=== PATIENT | female | born 1975 | race American Indian/Alaskan Native ===

== ENCOUNTER 2017-01-17 13:19 | Emergency (ER) | payer MEDICAID ==
[2017-01-17] MEDS ORDERED: TORADOL IM ONE (17:22)
--- NOTE | 2017-01-17 17:27 | Emergency Department Report ---
ED Recheck HPI - General Chief Complaint: High BP Stated Complaint: HYPERTENSION Time Seen by Provider: 01/17/17 16:11 Source: patient Mode of arrival: Ambulatory Limitations: No Limitations - History of Present Illness Initial Comments: This is a 41-year-old female nontoxic, well nourished in appearance, no acute signs of distress presents to the ED with c/o of hypertension and chronic intermittent headaches. Patient stated she has history of hypertension and has been receiving medication for blood pressure but stated she stopped due to normal blood pressure readings. Patient stated she went to a pharmacist and take her blood pressure and CVS was elevated and she was concerned and he needed to follow up with provider for hypertension.She is currently on a diet for hypertension. She denies taking any medication. Patient describes headache as aching diffusely. Denies thunderclap headache. Patient states headache is subsided with darkness and aggravated with light. Patient denies any blurry vision, nausea, vomiting, chest pain, shortness of breathe, numbness , tingling, stiff neck, or visual chagnes. Allergies to Naproxen and Tramadol. PMH includes Seizures. MD Complaint: medication refill request -: year(s) Returns Today for: request for prescription Symptoms Since Prior Visit: no new symptoms, improved Associated Symptoms: none. denies: fever, chills, chest pain, shortness of breath, rash, malaise, nasuea, abdominal pain - Related Data Previous Rx's Medication Instructions Recorded Last Taken Type Diclofenac Dr [Hans Rios] 75 mg PO BIDWM #20 tablet 08/01/15 Unknown Rx Diphenhydramine HCl [Benadryl 25 mg PO Q6H #30 tablet 10/06/15 Unknown Rx Allergy TAB] Hydrocortisone 1% [Hydrocortisone 1 applicatio TP TID #1 tube 10/06/15 Unknown Rx 1% CREAM] Butalb/Acetamin/Caff 50-325-40 1 tab PO Q6HR PRN #30 tab 01/17/17 Unknown Rx [Fioricet] Allergies Allergy/AdvReac Type Severity Reaction Status Date / Time naproxen [From Naprosyn] AdvReac Nausea Verified 10/06/15 09:26 tramadol HCl [From Ultram] AdvReac Nausea Verified 10/06/15 09:26 ED Review of Systems ROS: Stated complaint: HYPERTENSION Other details as noted in HPI Constitutional: denies: chills, fever Eyes: denies: eye pain, eye discharge, vision change ENT: denies: ear pain, throat pain Respiratory: denies: cough, shortness of breath, wheezing Cardiovascular: denies: chest pain, palpitations Endocrine: no symptoms reported Gastrointestinal: denies: abdominal pain, nausea, diarrhea Genitourinary: denies: urgency, dysuria, discharge Musculoskeletal: denies: back pain, joint swelling, arthralgia Skin: denies: rash, lesions Neurological: headache. denies: weakness, paresthesias Psychiatric: denies: anxiety, depression Hematological/Lymphatic: denies: easy bleeding, easy bruising ED Past Medical Hx - Past Medical History Previous Medical History?: Yes Hx Seizures: Yes Additional medical history: cerebral palsy - Surgical History Past Surgical History?: Yes Additional Surgical History: hysterectomy 05/24 - Social History Smoking Status: Never Smoker Substance Use Type: None - Medications Home Medications: Home Medications Medication Instructions Recorded Confirmed Last Taken Type Diclofenac Dr [Voltaremario alberto Dr] 75 mg PO BIDWM #20 tablet 08/01/15 Unknown Rx Diphenhydramine HCl [Benadryl 25 mg PO Q6H #30 tablet 10/06/15 Unknown Rx Allergy TAB] Hydrocortisone 1% [Hydrocortisone 1 applicatio TP TID #1 tube 10/06/15 Unknown Rx 1% CREAM] Butalb/Acetamin/Caff 50-325-40 1 tab PO Q6HR PRN #30 tab 01/17/17 Unknown Rx [Fioricet] ED Physical Exam - General Limitations: No Limitations General appearance: alert, in no apparent distress - Head Head exam: Present: atraumatic, normocephalic, normal inspection - Eye Eye exam: Present: normal appearance, PERRL, EOMI. Absent: scleral icterus, conjunctival injection, nystagmus, periorbital swelling, periorbital tenderness Pupils: Present: normal accommodation - ENT ENT exam: Present: normal exam, normal orophraynx, mucous membranes moist, TM's normal bilaterally, normal external ear exam - Neck Neck exam: Present: normal inspection, full ROM. Absent: tenderness, meningismus, lymphadenopathy, thyromegaly - Respiratory Respiratory exam: Present: normal lung sounds bilaterally. Absent: respiratory distress, wheezes, rales, rhonchi, stridor, chest wall tenderness, accessory muscle use, decreased breath sounds, prolonged expiratory - Cardiovascular Cardiovascular Exam: Present: regular rate, normal rhythm, normal heart sounds. Absent: bradycardia, tachycardia, irregular rhythm, systolic murmur, diastolic murmur, rubs, gallop - GI/Abdominal GI/Abdominal exam: Present: soft, normal bowel sounds. Absent: distended, tenderness, guarding, rebound, rigid, diminished bowel sounds - Rectal Rectal exam: Present: deferred - Extremities Exam Extremities exam: Present: normal inspection, full ROM, normal capillary refill. Absent: tenderness, pedal edema, joint swelling, calf tenderness - Back Exam Back exam: Present: normal inspection, full ROM. Absent: tenderness, CVA tenderness (R), CVA tenderness (L), muscle spasm, paraspinal tenderness, vertebral tenderness, rash noted - Neurological Exam Neurological exam: Present: alert, oriented X3, CN II-XII intact, normal gait, reflexes normal - Expanded Neurological Exam Expanded Patient oriented to: Present: person, place, time Cranial nerves: EOM's Intact: Normal, Gag Reflex: Normal, Tongue Deviation: Normal, Nystagmus: Normal, Facial Sensation: Normal, Facial Palsy with Forehead Movement: Normal, Facial Palsy without Forehead Movement: Normal Cerebellar function: Finger to Nose: Normal, Heel to Guerrero: Normal, Romberg: Normal Upper motor neuron: Jordan Neglect: Normal, Pronator Drift: Normal, Babinski Sign : Normal, Sensory Extinction: Normal Sensory exam: Upper Extremity Light Touch: Normal, Upper Extremity Pin Prick: Normal, Upper Extremity Temperature: Normal, UE 2 Point Discrimination: Normal, Lower Extremity Light Touch: Normal, Lower Extremity Pin Prick: Normal, Lower Extremity Temperature: Normal, LE 2 Point Discrimination: Normal Motor strength exam: RUE: 5, LUE: 5, RLE: 5, LLE: 5 DTR: bicep (R): 2+, bicep (L): 2+, tricep (R): 2+, tricep (L): 2+, knee (R): 2+ , knee (L): 2+, ankle (R): 2+, ankle (L): 2+ Best Eye Response (Jovana): (4) open spontaneously Best Motor Response ([place]): (6) obeys commands Best Verbal Response (Jovana): (5) oriented Jovana Total: 15 - Psychiatric Psychiatric exam: Present: normal affect, normal mood - Skin Skin exam: Present: warm, dry, intact, normal color. Absent: rash ED Course Vital Signs 01/17/17 01/17/17 14:16 17:25 Temperature 98.6 F Pulse Rate 90 79 Respiratory 18 Rate Blood Pressure 146/83 147/61 O2 Sat by Pulse 99 97 Oximetry - Reevaluation(s) Reevaluation #1: 01/17/17 17:28 Patient is speaking in full sentences with no signs of distress noted. ED Recheck MDM - Medical Decision Making This is a 41-year-old female that presents with chronic intermittent headaches. Patient is stable and was examiend by me. Patient vital signs is stable including b/p. Patient recevied Toradol in the ED which patient stated headache has improved and subsided. Patient was instructed to Follow-up with a primary care doctor in 3-5 days or if symptoms worsen and continue return to emergency room as soon as possible. At time time of discharge, the patient does not seem toxic or ill in appearance. No acute signs of distress noted. Patient agrees to discharge treatment plan of care. No further questions noted by the patient. Critical care attestation.: If time is entered above; I have spent that time in minutes in the direct care of this critically ill patient, excluding procedure time. ED Disposition Clinical Impression: Medication refill Headache Qualifiers: Headache type: unspecified Headache chronicity pattern: chronic headache Intractability: not intractable Qualified Code(s): R51 - Headache Disposition: DC-01 TO HOME OR SELFCARE Is pt being admited?: No Does the pt Need Aspirin: No Condition: Stable Instructions: Butalbital/Aspirin/Caffeine (By mouth), Acute Headache (ED) Additional Instructions: Follow-up with a primary care doctor in 3-5 days or if symptoms worsen and continue return to emergency room as soon as possible. Prescriptions: Butalb/Acetamin/Caff 50-325-40 [Fioricet] 1 tab PO Q6HR PRN #30 tab PRN Reason: Headache Referrals: PRIMARY CAREMD [Primary Care Provider] - 3-5 Days MARK EVERETT MD [Staff Physician] - 3-5 Days [facility] [Outside] - 3-5 Days [facility] [Outside] - 3-5 Days Forms: Work/School Release Form(ED)
[2017-01-17 17:28] VITALS: BP 147/61
== END 2017-01-17 19:12 | disposition home or self-care (01) ==
LOC: ED 13:19
DX: R51 Headache (principal); R56.9 Unspecified convulsions; Z88.8 Allergy status to other drugs, medicaments and biological substances
CPT/HCPCS: 96372; 99282; J1885

== ENCOUNTER 2020-03-31 11:08 | Emergency (ER) | payer MEDICAID ==
[2020-03-31 11:25] VITALS: BP 160/81
--- NOTE | 2020-03-31 11:43 | Emergency Department Report ---
Blank Doc - Documentation Documentation: 44-year-old female that had a right breast biopsy 03/22 to right breast presents to the ED with complaints of right sided chest pain, SOB, and body aches. 1- This initial assessment/diagnostic orders/clinical plan/ treatment(s) is/are subject to change based on pt's health status, clinical progression and re- assessment by fellow clinical providers in the ED. Further treatment and workup at subsequent clinical provers discretion. Patient/guardians urged not to elope from ED as their condition may be serious if not clinically assessed and managed. 2-labs 3-EKG
[2020-03-31 12:46] LABS: Hematocrit 36.9 % (30.3-42.9); Hemoglobin 12.2 gm/dl (10.1-14.3); Mean Corpuscular HGB Conc 33 % (30-34); Mean Corpuscular Volume 90 fl (79-97); Platelet Count 215 K/mm3 (140-440); Red Blood Count 4.11 M/mm3 (3.65-5.03); Red Cell Distribution Width 12.4 % (13.2-15.2)
[2020-03-31] MEDS ORDERED: ALUM-MAG HYDROXIDE-SIMETHICONE 200-200-20MG/5ML ORAL LIQD 30 ML PO ONE (12:49)
[2020-03-31] MEDS ORDERED: LIDOCAINE VISCOUS 2% 15 ML ORAL LIQD PO ONE (12:49)
[2020-03-31 12:58] LABS: INR 1.05 (0.87-1.13); Partial Thromboplastin Time 29.2 Sec. (24.2-36.6)
[2020-03-31 13:05] LABS: Alanine Aminotransferase 10 units/L (7-56); Albumin 4.3 g/dL (3.9-5); Blood Urea Nitrogen 4 mg/dL (7-17); Hemolysis Index 0
--- NOTE | 2020-03-31 13:17 | Emergency Department Report ---
ED General Adult HPI - General Chief complaint: Pain General Stated complaint: NOT FEELING WELL/JEREMY Time Seen by Provider: 03/31/20 11:41 Source: patient Mode of arrival: Ambulatory Limitations: No Limitations - History of Present Illness Initial comments: Patient is 44-year-old female with no significant past medical history except for recent biopsy and surgery. Patient presented to the ER complaining of right-sided chest pain and shortness of breath for the last few days. Patient also complaining of generalized body ache and headache. Patient denied any left sided chest pain, nausea or vomiting. No diarrhea. - Related Data Previous Rx's Medication Instructions Recorded Last Taken Type Diclofenac Dr [Hans Rios] 75 mg PO BIDWM #20 tablet 08/01/15 Unknown Rx Diphenhydramine HCl [Benadryl 25 mg PO Q6H #30 tablet 10/06/15 Unknown Rx Allergy TAB] Hydrocortisone 1% [Hydrocortisone 1 applicatio TP TID #1 tube 10/06/15 Unknown Rx 1% CREAM] Butalb/Acetamin/Caff 50-325-40 1 tab PO Q6HR PRN #30 tab 01/17/17 Unknown Rx [Fioricet] Allergies Allergy/AdvReac Type Severity Reaction Status Date / Time naproxen [From Naprosyn] AdvReac Nausea Verified 03/31/20 11:19 tramadol HCl [From Ultram] AdvReac Nausea Verified 03/31/20 11:19 ED Review of Systems ROS: Stated complaint: NOT FEELING WELL/JEREMY Other details as noted in HPI Comment: All other systems reviewed and negative Constitutional: denies: chills, fever Respiratory: shortness of breath. denies: cough, SOB with exertion, SOB at rest Cardiovascular: chest pain Gastrointestinal: denies: abdominal pain, nausea, vomiting Musculoskeletal: denies: back pain Neurological: denies: headache, weakness, numbness, paresthesias, confusion ED Past Medical Hx - Past Medical History Previous Medical History?: No Hx Seizures: Yes Additional medical history: cerebral palsy - Surgical History Additional Surgical History: hysterectomy 05/24/ BREAST BIOPSY - Social History Smoking Status: Never Smoker Substance Use Type: None - Medications Home Medications: Home Medications Medication Instructions Recorded Confirmed Last Taken Type Diclofenac [Hans Rios] 75 mg PO BIDWM #20 tablet 08/01/15 Unknown Rx Diphenhydramine HCl [Benadryl 25 mg PO Q6H #30 tablet 10/06/15 Unknown Rx Allergy TAB] Hydrocortisone 1% [Hydrocortisone 1 applicatio TP TID #1 tube 10/06/15 Unknown Rx 1% CREAM] Butalb/Acetamin/Caff 50-325-40 1 tab PO Q6HR PRN #30 tab 01/17/17 Unknown Rx [Fioricet] ED Physical Exam - General Limitations: No Limitations General appearance: alert, in no apparent distress - Head Head exam: Present: atraumatic, normocephalic, normal inspection - Eye Eye exam: Present: normal appearance, PERRL - ENT ENT exam: Present: normal exam, normal orophraynx, mucous membranes moist - Neck Neck exam: Present: normal inspection, full ROM. Absent: tenderness, meningismus - Respiratory Respiratory exam: Present: normal lung sounds bilaterally - Cardiovascular Cardiovascular Exam: Present: regular rate, normal rhythm, normal heart sounds - GI/Abdominal GI/Abdominal exam: Present: soft, normal bowel sounds. Absent: distended, tenderness, guarding, rebound, rigid, organomegaly, mass, bruit, pulsatile mass, hernia - Extremities Exam Extremities exam: Present: normal inspection, full ROM, normal capillary refill. Absent: tenderness, pedal edema, joint swelling, calf tenderness - Back Exam Back exam: Present: normal inspection, full ROM. Absent: CVA tenderness (R), CVA tenderness (L) - Neurological Exam Neurological exam: Present: alert, oriented X3, CN II-XII intact, normal gait, reflexes normal - Psychiatric Psychiatric exam: Present: normal mood - Skin Skin exam: Present: warm, intact, normal color ED Course Vital Signs 03/31/20 11:23 Pulse Rate 93 H Respiratory 18 Rate Blood Pressure 160/81 O2 Sat by Pulse 100 Oximetry ED Medical Decision Making - Lab Data Result diagrams: 03/31/20 12:14 03/31/20 12:14 - Radiology Data Radiology results: report reviewed - Medical Decision Making Patient is 44-year-old female with no significant past medical history except for recent biopsy and surgery. Patient presented to the ER complaining of right-sided chest pain and shortness of breath for the last few days. Patient also complaining of generalized body ache and headache. Patient denied any left sided chest pain, nausea or vomiting. No diarrhea. Patient received Mylanta and patient's lidocaine p.o. Patient stated her symptoms improved. Labs reviewed and is unremarkable. CTA chest showed no PE however showed cholelithiasis. Patient advised to follow-up with surgery as an outpatient. Patient advised to return to the ER she develop any new symptoms. Critical care attestation.: If time is entered above; I have spent that time in minutes in the direct care of this critically ill patient, excluding procedure time. ED Disposition Clinical Impression: Acute abdominal pain, Gallbladder calculus Disposition: TO HOME OR SELFCARE Is pt being admited?: No Condition: Stable Instructions: Cholelithiasis Referrals: PRIMARY CAREMD [Primary Care Provider] - 3-5 Days NURYS CHING MD [Staff Physician] - 3-5 Days
[2020-03-31 13:19] LABS: BUN/Creatinine Ratio 8
[2020-03-31 14:00] LABS: Band Neutrophils # (Manual) 0.1 K/mm3; RBC Morphology Normal; Total Cells Counted 100
--- NOTE | 2020-03-31 14:24 | XRay Report ---
CHEST 2 VIEWS INDICATION / CLINICAL INFORMATION: Chest Pain. COMPARISON: None available. FINDINGS: SUPPORT DEVICES: None. HEART / MEDIASTINUM: No significant abnormality. LUNGS / PLEURA: No significant pulmonary or pleural abnormality. No pneumothorax. ADDITIONAL FINDINGS: No significant additional findings. IMPRESSION: 1. No acute findings. Signer Name: Edgar Tuttle MD Signed: 03/31/2020 2:20 PM Workstation Name: [id number]
--- NOTE | 2020-03-31 14:37 | Cat Scan Report ---
CTA CHEST WITH CONTRAST INDICATION / CLINICAL INFORMATION: CHEST PAIN WITH SOB. TECHNIQUE: Axial CT images were obtained through the chest after injection of 1 cc of Omnipaque 350 I V contrast. 3 plane MIP and/or 3D reconstructions were produced. All CT scans at this location are pe rformed using CT dose reduction for ALARA by means of automated exposure control. COMPARISON: Chest radiograph dated 03/31/2020 FINDINGS: PULMONARY ARTERIES: No pulmonary emboli. THORACIC AORTA: Mild atherosclerotic calcification without acute abnormality. HEART: No significant abnormality. CORONARY ARTERY CALCIFICATION: None. MEDIASTINUM / CESAR: No significant abnormality. PLEURA: No pleural effusion. No pneumothorax. LUNGS: No acute air space or interstitial disease. ADDITIONAL FINDINGS: None. UPPER ABDOMEN: There is Cholelithiasis SKELETAL STRUCTURES: No significant osseous abnormality. IMPRESSION: 1. No CT evidence for pulmonary embolism. 2. There is cholelithiasis Signer Name: Edgar Tuttle MD Signed: 03/31/2020 2:33 PM Workstation Name: [id number]
== END 2020-03-31 15:21 | disposition home or self-care (01) ==
LOC: ED 11:08
DX: K80.20 Calculus of gallbladder without cholecystitis without obstruction (principal); R10.9 Unspecified abdominal pain; R56.9 Unspecified convulsions; Z98.890 Other specified postprocedural states; Z79.899 Other long term (current) drug therapy; Z88.8 Allergy status to other drugs, medicaments and biological substances
CPT/HCPCS: 36415; 71046; 71275; 80053; 84484; 84703; 85007; 85025; 85379; 85610; 85730; 99284; Q9967

== ENCOUNTER 2021-06-30 08:40 | Emergency (ER) | payer MEDICAID ==
[2021-06-30 09:52] VITALS: BP 167/78
[2021-06-30 11:04] LABS: Amorphous Crystals,Urine 3+; Bilirubin,Urine NEG (Negative); Blood,Urine NEG (Negative); Color,Urine Red (Yellow)
[2021-06-30 11:22] LABS: HCG Qualitative,Urine Negative (Negative)
[2021-06-30] MEDS ORDERED: ONDANSETRON 4 MG/2 ML INJ IV ONE (13:10)
[2021-06-30] MEDS ORDERED: SODIUM CHLORIDE 0.9% 1000 ML 1,000 ML IV ONE (13:10)
[2021-06-30 15:46] LABS: Basophils # (Auto) 0.1 K/mm3 (0.0-0.1); Basophils % (Auto) 0.4 % (0.0-1.8); Eosinophils % (Auto) 0.1 % (0.0-4.3); Hematocrit 37.6 % (30.3-42.9); Lymphocytes # (Auto) 2.4 K/mm3 (1.2-5.4); Lymphocytes % (Auto) 14.7 % (13.4-35.0); Mean Corpuscular HGB Conc 32 % (30-34); Mean Corpuscular Volume 92 fl (79-97); Monocytes # (Auto) 1.1 K/mm3 (0.0-0.8); Monocytes % (Auto) 6.6 % (0.0-7.3); Platelet Count 199 K/mm3 (140-440); Red Cell Distribution Width 12.6 % (13.2-15.2)
--- NOTE | 2021-06-30 16:16 | XRay Report ---
ABDOMEN 1 VIEW INDICATION / CLINICAL INFORMATION: abd pain constipation. COMPARISON: None available. FINDINGS: TUBES / LINES: None. BOWEL GAS PATTERN: Gaseous prominence of the colon without evidence of bowel obstruction. FREE AIR / EXTRALUMINAL GAS: None seen. ADDITIONAL FINDINGS: No significant additional findings. IMPRESSION: 1. Gaseous prominence of the colon without evidence of bowel obstruction. Signer Name: Jb Garces MD Signed: 06/30/2021 4:12 PM Workstation Name: [id number]
--- NOTE | 2021-06-30 16:24 | Emergency Department Report ---
ED Abdominal Pain HPI - General Chief Complaint: Abdominal Pain Stated Complaint: STOMACH PAIN Source: patient Mode of arrival: Ambulatory Limitations: No Limitations - History of Present Illness Initial Comments: 46-year-old female presents to the ED complaining of abdominal pain x1 day. She states that she take an Tylenol, Maalox ,epsom salt this a.m. as she thought that she was constipate. Patient states that she normally goes to [facility]. She normally receives Percocet for pain. Patient states that MD Complaint: abdominal pain Onset/Timin -: days(s) Location: diffuse Radiation: none Migration to: no migration Severity scale (0 -10): 5 Quality: dull Consistency: intermittent Improves With: nothing Worsens With: nothing Associated Symptoms: nausea - Related Data Previous Rx's Medication Instructions Recorded Last Taken Type Romel Rios [Hans Rios] 75 mg PO BIDWM #20 tablet 08/01/15 Unknown Rx Diphenhydramine HCl [Benadryl 25 mg PO Q6H #30 tablet 10/06/15 Unknown Rx Allergy TAB] Hydrocortisone 1% [Hydrocortisone 1 applicatio TP TID #1 tube 10/06/15 Unknown Rx 1% CREAM] Butalb/Acetamin/Caff 50-325-40 1 tab PO Q6HR PRN #30 tab 01/17/17 Unknown Rx [Fioricet] Esomeprazole Magnesium [NexIUM] 40 mg PO QDAY #30 capsule. 03/31/20 Unknown Rx Allergies Allergy/AdvReac Type Severity Reaction Status Date / Time naproxen [From Naprosyn] AdvReac Nausea Verified 03/31/20 11:19 tramadol HCl [From Ultram] AdvReac Nausea Verified 03/31/20 11:19 ED Review of Systems ROS: Stated complaint: STOMACH PAIN Other details as noted in HPI ED Past Medical Hx - Past Medical History Previous Medical History?: Yes Hx Seizures: Yes Additional medical history: cerebral palsy - Surgical History Past Surgical History?: Yes Additional Surgical History: hysterectomy 05/24/ BREAST BIOPSY - Social History Smoking Status: Never Smoker Substance Use Type: None - Medications Home Medications: Home Medications Medication Instructions Recorded Confirmed Last Taken Type Romel Polanco Dr] 75 mg PO BIDWM #20 tablet 08/01/15 Unknown Rx Diphenhydramine HCl [Benadryl 25 mg PO Q6H #30 tablet 10/06/15 Unknown Rx Allergy TAB] Hydrocortisone 1% [Hydrocortisone 1 applicatio TP TID #1 tube 10/06/15 Unknown Rx 1% CREAM] Butalb/Acetamin/Caff 50-325-40 1 tab PO Q6HR PRN #30 tab 01/17/17 Unknown Rx [Fioricet] Esomeprazole Magnesium [NexIUM] 40 mg PO QDAY #30 capsule. 03/31/20 Unknown Rx ED Physical Exam - General Limitations: No Limitations ED Course Vital Signs 06/30/21 09:47 Temperature 98.3 F Pulse Rate 79 Respiratory 16 Rate Blood Pressure 167/78 [Left] O2 Sat by Pulse 97 Oximetry ED Medical Decision Making - Lab Data Result diagrams: 06/30/21 15:22 Critical care attestation.: If time is entered above; I have spent that time in minutes in the direct care of this critically ill patient, excluding procedure time. ED Disposition Condition: Stable Instructions: Abdominal Pain (ED) Referrals: PRIMARY CARE, [Primary Care Provider] - 3-5 Days
== END 2021-07-01 01:02 | disposition left against medical advice (07) ==
LOC: ED 08:40
DX: R10.84 Generalized abdominal pain (principal); K59.00 Constipation, unspecified; R56.9 Unspecified convulsions; G80.9 Cerebral palsy, unspecified; Z90.710 Acquired absence of both cervix and uterus; Z98.890 Other specified postprocedural states; Z88.5 Allergy status to narcotic agent; Z88.6 Allergy status to analgesic agent
CPT/HCPCS: 36415; 74018; 81001; 81025; 83690; 84702; 85025; 96361; 96374; 99283; J2405; J7030